=== PATIENT | female | born 1985 | race Hispanic/Latino ===

== ENCOUNTER 2020-10-25 02:01 | Emergency (ER) | payer BC ==
[2020-10-25] MEDS ORDERED: ONDANSETRON 4 MG ODT TAB PO ONE (06:02)
[2020-10-25] MEDS ORDERED: KETOROLAC 60 MG/2 ML INJ IM STA (06:02)
[2020-10-25] MEDS ORDERED: oxyCODONE /ACETAMINOPHEN 5-325MG TAB PO ONE (06:02)
--- NOTE | 2020-10-25 06:26 | Emergency Department Report ---
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 MD Complaint: back pain Place: work Radiation: none Severity: mild Quality: dull Consistency: constant Improves With: none Worsens With: movement - Related Data Previous Rx's Medication Instructions Recorded Last Taken Type Amoxicillin/K Clav Tab [Augmentin 1 tab PO BID #20 tablet 03/03/14 Unknown Rx 875MG] Naproxen [Naprosyn TAB] 375 mg PO BID #14 tablet 03/03/14 Unknown Rx traMADoL [Ultram 50 MG tab] 50 mg PO Q6HR PRN #14 tablet 03/03/14 Unknown Rx Ketorolac [Toradol] 10 mg PO Q6H PRN #14 tablet 10/25/20 Unknown Rx methOCARBAMOL [Robaxin TAB] 750 mg PO Q8H #14 tablet 10/25/20 Unknown Rx Allergies Allergy/AdvReac Type Severity Reaction Status Date / Time No Known Allergies Allergy Verified 03/03/14 05:45 ED Review of Systems ROS: Stated complaint: BACK PAIN Other details as noted in HPI Comment: All other systems reviewed and negative ED Past Medical Hx - Past Medical History Previous Medical History?: No - Surgical History Past Surgical History?: No - Social History Smoking Status: Never Smoker Substance Use Type: None - Medications Home Medications: Home Medications Medication Instructions Recorded Confirmed Last Taken Type Amoxicillin/K Clav Tab [Augmentin 1 tab PO BID #20 tablet 03/03/14 Unknown Rx 875MG] Naproxen [Naprosyn TAB] 375 mg PO BID #14 tablet 03/03/14 Unknown Rx traMADoL [Ultram 50 MG tab] 50 mg PO Q6HR PRN #14 tablet 03/03/14 Unknown Rx Ketorolac [Toradol] 10 mg PO Q6H PRN #14 tablet 10/25/20 Unknown Rx methOCARBAMOL [Robaxin TAB] 750 mg PO Q8H #14 tablet 10/25/20 Unknown Rx ED Physical Exam - General Limitations: No Limitations General appearance: alert, in no apparent distress - Head Head exam: Present: atraumatic, normocephalic - Eye Eye exam: Present: normal appearance - ENT ENT exam: Present: mucous membranes moist - Neck Neck exam: Present: normal inspection - Respiratory Respiratory exam: Present: normal lung sounds bilaterally. Absent: respiratory distress - Cardiovascular Cardiovascular Exam: Present: regular rate, normal rhythm. Absent: systolic murmur, diastolic murmur, rubs, gallop - GI/Abdominal GI/Abdominal exam: Present: soft, normal bowel sounds - Extremities Exam Extremities exam: Present: normal inspection - Back Exam Back exam: Present: normal inspection, tenderness, muscle spasm, paraspinal tenderness, vertebral tenderness - Neurological Exam Neurological exam: Present: alert, oriented X3, CN II-XII intact - Psychiatric Psychiatric exam: Present: normal affect, normal mood - Skin Skin exam: Present: warm, dry, intact, normal color. Absent: rash ED Course Vital Signs 10/25/20 02:22 Temperature 98.1 F Pulse Rate 85 Respiratory 17 Rate Blood Pressure 124/86 O2 Sat by Pulse 98 Oximetry ED Medical Decision Making - Medical Decision Making Pt presents the emergency department complaining of back pain most consistent with back Pain Most Consistent with Strain/Contusion. Differential Diagnosis Includes Lumbar Go Versus Musculoskeletal Spasm, Strain Versus Sciatica. No Back Pain Red Flags on History or Physical. Presentation Not Consistent with Malignancy, Fracture, Cauda Equina, Abdominal Aortic Aneurysm, Viscus Perforation, Pulmonary Embolism, Renal Colic, Pyelonephritis. Patient reports no B symptoms, trauma trauma, incontinence, saddle anesthesia, distal weakness, urinary symptoms and is a febrile. Critical care attestation.: If time is entered above; I have spent that time in minutes in the direct care of this critically ill patient, excluding procedure time. ED Disposition Clinical Impression: Lumbago Disposition: DC-01 TO HOME OR SELFCARE Is pt being admited?: No Does the pt Need Aspirin: No Condition: Stable Instructions: Back Injury Prevention, [id number], Back Exercises, [id number], Back Injury Prevention, Acute Back Pain, Adult Prescriptions: methOCARBAMOL [Robaxin TAB] 750 mg PO Q8H #14 tablet Ketorolac [Toradol] 10 mg PO Q6H PRN #14 tablet PRN Reason: Pain Referrals: LINDA LI MD [Staff Physician] - 3-5 Days
[2020-10-25 07:05] VITALS: BP 141/94
== END 2020-10-25 06:50 | disposition home or self-care (01) ==
LOC: ED 02:01
DX: M54.5 Low back pain (principal); Z79.899 Other long term (current) drug therapy
CPT/HCPCS: 96372; 99282; J1885; Q0162